=== PATIENT | male | born 1945 | race Caucasian/White ===

== ENCOUNTER 2024-03-05 20:40 | Emergency (ER) | payer MEDICARE, SELFPAY ==
[2024-03-05 20:45] VITALS: BP 104/81
[2024-03-05] MEDS: ADENOCARD 6 MG IV (20:51)
[2024-03-05 20:54] VITALS: BP 137/83
[2024-03-05] MEDS: ADENOCARD 12 MG IV (20:55)
[2024-03-05] MEDS: NSS 1000 IV (20:57)
[2024-03-05 21:00] VITALS: BP 99/69
[2024-03-05] MEDS: LOPRESSOR 5 MG IV (21:00)
[2024-03-05 21:01] LABS: % Basophils 0.5 % (0-2); % Eosinophils 2.4 % (0-6); % Immature Granulocytes 0.3 % (0-0.5); % Lymphocytes 24.2 % (20.5-51.1); % Monocytes 9.9 % (1.7-9.3); % Neutrophils 62.7 % (42.2-75.2); Absolute Basophils 0.1 10^3/uL (0-0.2); Absolute Eosinophils 0.2 10^3/uL (0-0.7); Absolute Lymphocytes 2.3 10^3/uL (1.2-3.4); Absolute Monocytes 0.9 10^3/uL (0.1-0.6); Absolute Neutrophils 5.8 10^3/uL (1.4-6.5); Hematocrit 43.3 % (39.0-52.0); Hemoglobin 15.7 g/dL (13.0-18.0); Mean Corp Hgb Conc. 36.3 g/dL (33.0-37.0); Mean Corpuscular Hgb 32.6 pg (27.0-31.0); Mean Corpuscular Volume 89.8 fL (80.0-94.0); Mean Platelet Volume 9.5 fL (7.4-10.4); Nucleated Red Blood Cells % 0 % (-); Platelet Count 260 10^3/uL (130-400); Red Blood Cell Count 4.82 10^6/uL (4.70-6.10); Red Cell Dist. Width 12.6 % (11.5-14.5); White Blood Cell Count 9.3 10^3/uL (4.8-10.8)
--- NOTE | 2024-03-05 21:02 | ED.GENMED ---
History of Present Illness
General
Chief Complaint: Dizziness
Time Seen by Provider: 03/05/24 20:42
Travel History
Have you had any contact with someone who has COVID-19?: No
Do you have any symptoms of coronavirus? Fever > 100 degrees, chills, cough, shortness of breath, sore throat, loss of taste or smell, muscle aches, or headache?: No
History of Present Illness
History of Present Illness:
Patient presents the emergency department with acute onset lightheadedness that started tonight. States he has a history of tachycardia and is supposed to get ablation but he is unsure of the exact history. Notes that this started tonight where he
began feeling very lightheaded with mild palpitations. Denies chest pain or shortness of breath.
Phy Exam
Physical Exam
Physical Exam:
GENERAL APPEARANCE: pale, uncomfortable appearing
EYES lids/conjunctiva normal
EARS/NOSE/THROAT Mucous membranes moist, uvula midline without oral pharyngeal erythema, exudate or swelling
HEAD/NECK normocephalic atraumatic, neck is supple.
RESPIRATORY respiratory effort normal, speaks in full sentences, no accessory muscle use. Lungs clear to auscultation without rhonchi, wheezes, rales
CARDIAC Regular tachycardia to 180
ABDOMINAL Soft, ND/NT. No pulsatile masses on exam, rebound tenderness, Feliz sign or pain over Mcburney's point.
MUSCLES/EXTREMITIES No abnormal range of motion, no swelling.
SKIN Warm, pink and dry. No rashes
NEUROLOGICAL Speech is clear and appropriate. Normal level of consciousness. 5/5 strength in all extremities.
PSYCH Normal mood and affect. Judgement/competence is appropriate
Course
Orders/Labs/Results
Orders:
Orders
03/05/24 20:43
ECG [Electrocardiogram (*1)] Urgent
Reason for Study: Shortness of Breath
EKG- Treatment ONCE
03/05/24 20:48
Complete Blood Count/With Diff Urgent
PTT Urgent
TSH Urgent
Comment: ADD ON
03/05/24 20:51
Adenosine [Adenocard] 6 mg IV NOW STA
03/05/24 20:52
Add On- LAB Urgent
Tests Added?: mag./tsh
03/05/24 20:55
Adenosine [Adenocard] 12 mg IV NOW STA
03/05/24 20:57
0.9% Sodium Chloride 1000 ml [Nss] 1,000 ml IV BOLUS
03/05/24 21:00
Metoprolol [Lopressor] 5 mg IV NOW STA
03/05/24 21:23
Comprehensive Metabolic Panel Urgent
Magnesium Urgent
Comment: ADD ON
03/05/24 21:29
Add On- LAB Urgent
Tests Added?: magnesium
Abnormal Lab Results
03/05/24 03/05/24
20:48 21:23
MCH 32.6 H pg
(27.0-31.0)
Absolute Monos (auto) 0.9 H 10^3/uL
(0.1-0.6)
Monocytes % 9.9 H %
(1.7-9.3)
APTT 37.2 H Sec
(23.4-35.0)
Glucose 107 H mg/dl
(70-99)
03/05/24 20:48
03/05/24 21:23
Vital Signs
Initial and Last Documented VS:
Initial Vital Signs
Temp Pulse Resp
98.3 F 178 20
03/05/24 20:43 03/05/24 20:43 03/05/24 20:43
Last Documented Vital Signs
Temp Pulse Resp BP Pulse Ox
98.3 F 82 13 96/76 92
03/05/24 20:43 03/05/24 22:15 03/05/24 22:15 03/05/24 22:00 03/05/24 22:15
*Critical Care Note
Total Time (30-74mins, 75-104mins- exclusive of procedures): 35 minutes
ED Attending Note
ED Attending Note
ED Attending Note:
On arrival, patient found to be in SVT with a chronic right bundle branch block. Patient would convert to sinus rhythm with a right bundle branch block with first-degree AV block after 6 mg of adenosine. He shortly converted back into SVT and he
was redosed with 12 mg of adenosine which was successful. After that, he converted back into SVT. At this point patient was given 5 mg of IV metoprolol. He then converted to sinus rhythm once again.
patient remains in sinus rhythm. he is asymptomatic. labs reassuring. Has follow up with EP physician on Thursday.
-
Portions of this chart may have been created with voice recognition software.� Occasional wrong word or��sound alike� substitutions may have occurred due to the inherent limitations of voice recognition software.
Discharge Plan
Departure
Patient Disposition: Home (Routine Discharge)
Date of Disposition: 03/05/24
Time of Disposition: 22:22
Patient with high blood pressure during this ER visit?: No
Discharge Problem:
Paroxysmal SVT (supraventricular tachycardia)
Instructions: Supraventricular tachycardia (SVT)
Activity Restrictions/Additional Instructions:
follow up with your game operator as scheduled. Return to ER with recurrent symptoms.
Interventions
Interventions:
*Risk Screen - Suicide Last Done: 03/05/24 20:43
*General Assessment Last Done: 03/05/24 20:43
*Neglect/Abuse Screening Last Done: 03/05/24 20:43
ED- Fall Risk Assessment Last Done: 03/05/24 21:02
*Nursing Disposition Last Done: 03/05/24 22:35
ED- Neurological Assessment Last Done: 03/05/24 21:02
ED- Cardiac Assessment Last Done: 03/05/24 21:02
ED Swallowing Screen Last Done: 03/05/24 21:02
Discharge Date and Time
Print Language: EMIRATI
[2024-03-05 21:10] LABS: APTT 37.2 Sec (23.4-35.0)
[2024-03-05 21:45] LABS: ALT (SGPT) 27 U/L (0-50); AST (SGOT) 27 U/L (17-59); Albumin 4.2 g/dl (3.5-5.0); Alkaline Phosphatase 47 U/L (38-126); Blood Urea Nitrogen 18 mg/dl (9-20); Calcium 9.5 mg/dl (8.4-10.2); Carbon Dioxide 23 mmol/L (22-30); Chloride 107 mmol/L (98-107); Glucose 107 mg/dl (70-99); Magnesium 2.1 mg/dl (1.6-2.3); Sodium 135 mmol/L (135-145); Total Bilirubin 1.2 mg/dl (0.2-1.3); Total Protein 6.8 g/dl (6.3-8.2); eGFR > 60.00
[2024-03-05 22:00] VITALS: BP 96/76
[2024-03-05 22:00] LABS: TSH 1.13 uIU/ml (0.47-4.68)
== END 2024-03-05 22:41 | disposition home or self-care (01) ==
LOC: EMR 20:40
PROVIDERS: EMERGENCY PHYSICIAN Emergency Medicine; FAMILY PHYSICIAN Internal Medicine
DX: I47.19 Other supraventricular tachycardia (principal)
CPT/HCPCS: 99291; 96374; 96375 ×2; 96361; 80053; 83735; 84443; 85025; 85730; 93005

== ENCOUNTER → 2024-03-14 15:44 | Outpatient (REF) | payer MEDICARE, SELFPAY | LOC: RCS 15:44 | PROVIDERS: ATTENDING PHYSICIAN Internal Medicine Cardiovascular Disease; FAMILY PHYSICIAN Internal Medicine | DX: R00.2 Palpitations (principal) | CPT/HCPCS: 93306 ==

== ENCOUNTER → 2024-04-04 19:03 | Outpatient (REF) | payer MEDICARE, SELFPAY | LOC: CLAB 19:03 | PROVIDERS: ATTENDING PHYSICIAN Surgery | DX: N39.0 Urinary tract infection, site not specified (principal) | CPT/HCPCS: 87086 ==

== ENCOUNTER 2024-04-11 17:21 | Emergency (ER) | payer MEDICARE, SELFPAY ==
[2024-04-11 17:36] VITALS: BP 145/98
[2024-04-11 18:02] LABS: % Basophils 0.4 % (0-2); % Immature Granulocytes 0.2 % (0-0.5); % Lymphocytes 16.2 % (20.5-51.1); % Monocytes 7.4 % (1.7-9.3); % Neutrophils 74.8 % (42.2-75.2); Absolute Eosinophils 0.1 10^3/uL (0-0.7); Absolute Lymphocytes 1.5 10^3/uL (1.2-3.4); Absolute Monocytes 0.7 10^3/uL (0.1-0.6); Absolute Neutrophils 6.9 10^3/uL (1.4-6.5); Hematocrit 45.3 % (39.0-52.0); Hemoglobin 16.7 g/dL (13.0-18.0); Mean Corp Hgb Conc. 36.9 g/dL (33.0-37.0); Mean Corpuscular Hgb 32.7 pg (27.0-31.0); Mean Corpuscular Volume 88.8 fL (80.0-94.0); Mean Platelet Volume 9.7 fL (7.4-10.4); Nucleated Red Blood Cells % 0 % (-); Platelet Count 274 10^3/uL (130-400); Red Cell Dist. Width 12.4 % (11.5-14.5); White Blood Cell Count 9.2 10^3/uL (4.8-10.8)
[2024-04-11 18:12] VITALS: BP 147/86
[2024-04-11 18:17] LABS: ALT (SGPT) 30 U/L (0-50); AST (SGOT) 25 U/L (17-59); Alkaline Phosphatase 72 U/L (38-126); Blood Urea Nitrogen 19 mg/dl (9-20); Calcium 10.4 mg/dl (8.4-10.2); Carbon Dioxide 20 mmol/L (22-30); Chloride 104 mmol/L (98-107); Glucose 123 mg/dl (70-99); Sodium 138 mmol/L (135-145); Total Bilirubin 1.1 mg/dl (0.2-1.3); Total Protein 7.7 g/dl (6.3-8.2); eGFR > 60.00
[2024-04-11 18:27] LABS: Troponin I 0.015 ng/ml
[2024-04-11 19:19] VITALS: BP 132/63
--- NOTE | 2024-04-11 19:38 | ED.GENMED ---
History of Present Illness
General
Chief Complaint: Heart Rate Problem
Time Seen by Provider: 04/11/24 18:30
Travel History
Have you had any contact with someone who has COVID-19?: No
Do you have any symptoms of coronavirus? Fever > 100 degrees, chills, cough, shortness of breath, sore throat, loss of taste or smell, muscle aches, or headache?: No
History of Present Illness
History of Present Illness:
79-year-old male presents the emergency department for evaluation of rapid heart rate. He has a known history of paroxysmal SVT and is scheduled for an ablation at the end of this month. On arrival to the ER the patient's symptoms resolved. He
does take low-dose metoprolol for control of this however feels as though his heart rate varies excessively throughout the day. Currently denies any chest pain or shortness of breath simply feels tired
Review of Systems
Review of Systems
Allergies reviewed?: Yes
All Other Systems: ROS reviewed and negative except as documented in HPI and ROS
Phy Exam
Physical Exam
Physical Exam:
GEN: Well appearing, NAD, WDWN
HEENT: Oral mucosa moist, no scleral icterus
Cardiac: Regular rate and rhythm, no murmurs
Lung: No respiratory distress, no tachypnea lungs clear to auscultation bilaterally
MSK: No gross deformity or injuries
Skin: Good color, no pallor or jaundice, no rashes
Neuro: AO x3, moves all extremities freely
Psych: Calm, cooperative
Course
Orders/Labs/Results
Orders:
Orders
04/11/24 17:29
EKG [Electrocardiogram (*1)] Urgent
Reason for Study: Tachycardia
04/11/24 17:30
EKG- Treatment ONCE
04/11/24 17:54
Complete Blood Count/With Diff Urgent
Comprehensive Metabolic Panel Urgent
Troponin I Urgent
04/11/24 18:40
Electrocardiogram (*1) Urgent
Reason for Study: Palpitations
EKG- Treatment ONCE
Abnormal Lab Results
04/11/24
17:54
MCH 32.7 H pg
(27.0-31.0)
Absolute Neuts (auto) 6.9 H 10^3/uL
(1.4-6.5)
Absolute Monos (auto) 0.7 H 10^3/uL
(0.1-0.6)
Lymphocytes % 16.2 L %
(20.5-51.1)
Carbon Dioxide 20 L mmol/L
(22-30)
Glucose 123 H mg/dl
(70-99)
Calcium 10.4 H mg/dl
(8.4-10.2)
04/11/24 17:54
04/11/24 17:54
Vital Signs
Initial and Last Documented VS:
Initial Vital Signs
Temp Pulse Resp BP Pulse Ox
98.2 F 80 18 145/98 98
04/11/24 17:36 04/11/24 17:36 04/11/24 17:36 04/11/24 17:36 04/11/24 17:36
Last Documented Vital Signs
Temp Pulse Resp BP Pulse Ox
98.6 F 66 17 132/63 98
04/11/24 19:19 04/11/24 19:19 04/11/24 18:15 04/11/24 19:19 04/11/24 20:22
MDM/Problems Addressed
MDM/Problems Addressed:
Patient's SVT terminated upon arrival to the ER and he remained asymptomatic in the emergency department. No changes to therapy, outpatient cardiac ablation already scheduled
Comment
Comment:
EKG independently interpreted by me shows normal sinus rhythm with no ST changes concerning for ischemia
*Critical Care Note
Total Time (30-74mins, 75-104mins- exclusive of procedures): Not Applicable
ED Attending Note
-
Portions of this chart may have been created with voice recognition software.� Occasional wrong word or��sound alike� substitutions may have occurred due to the inherent limitations of voice recognition software.
Discharge Plan
Departure
Patient Disposition: Home (Routine Discharge)
Date of Disposition: 04/11/24
Time of Disposition: 19:39
Patient with high blood pressure during this ER visit?: No
Discharge Problem:
Paroxysmal supraventricular tachycardia
Instructions: Supraventricular tachycardia (SVT)
Referrals:
Jose Rafael Mohan I., DO [Family Provider] -
Interventions
Interventions:
*Risk Screen - Suicide Last Done: 04/11/24 17:38
*General Assessment Last Done: 04/11/24 17:38
*Neglect/Abuse Screening Last Done: 04/11/24 17:38
ED- Fall Risk Assessment Last Done: 04/11/24 20:00
*ED COVID-19 Vaccine History Last Done: 04/11/24 20:00
*Nursing Disposition Last Done: 04/11/24 20:22
ED- Cardiac Assessment Last Done: 04/11/24 19:30
ED- Pulmonary Assessment Last Done: 04/11/24 20:00
Discharge Date and Time
Discharge Date/Time: 04/11/24 20:23
Print Language: CONGOLESE
== END 2024-04-11 20:23 | disposition home or self-care (01) ==
LOC: EMR 17:21
PROVIDERS: EMERGENCY PHYSICIAN Emergency Medicine; FAMILY PHYSICIAN Internal Medicine
DX: I47.19 Other supraventricular tachycardia (principal)
CPT/HCPCS: 99283; 80053; 84484; 85025; 93005

== ENCOUNTER → 2024-04-20 09:34 | Outpatient (REF) | payer MEDICARE, SELFPAY ==
[2024-04-20 10:10] LABS: % Basophils 0.9 % (0-2); % Eosinophils 3.4 % (0-6); % Immature Granulocytes 0.2 % (0-0.5); % Monocytes 11.2 % (1.7-9.3); % Neutrophils 60.3 % (42.2-75.2); Absolute Basophils 0.1 10^3/uL (0-0.2); Absolute Eosinophils 0.2 10^3/uL (0-0.7); Absolute Lymphocytes 1.6 10^3/uL (1.2-3.4); Absolute Monocytes 0.7 10^3/uL (0.1-0.6); Absolute Neutrophils 3.9 10^3/uL (1.4-6.5); Hematocrit 45.5 % (39.0-52.0); Hemoglobin 15.4 g/dL (13.0-18.0); Mean Corp Hgb Conc. 33.8 g/dL (33.0-37.0); Mean Corpuscular Hgb 32.2 pg (27.0-31.0); Mean Corpuscular Volume 95.2 fL (80.0-94.0); Mean Platelet Volume 11.3 fL (7.4-10.4); Nucleated Red Blood Cells % 0 % (-); Platelet Count 152 10^3/uL (130-400); Red Blood Cell Count 4.78 10^6/uL (4.70-6.10); Red Cell Dist. Width 12.6 % (11.5-14.5); White Blood Cell Count 6.5 10^3/uL (4.8-10.8)
[2024-04-20 10:47] LABS: ALT (SGPT) 27 U/L (0-50); AST (SGOT) 23 U/L (17-59); Albumin 4.8 g/dl (3.5-5.0); Alkaline Phosphatase 55 U/L (38-126); Blood Urea Nitrogen 20 mg/dl (9-20); Calcium 9.9 mg/dl (8.4-10.2); Carbon Dioxide 23 mmol/L (22-30); Chloride 104 mmol/L (98-107); Glucose 102 mg/dl (70-99); Magnesium 2.4 mg/dl (1.6-2.3); Potassium 4.3 mmol/L (3.5-5.1); Sodium 139 mmol/L (135-145); Total Protein 7.3 g/dl (6.3-8.2); eGFR > 60.00
== END ==
LOC: SDSPAT 09:34
PROVIDERS: ATTENDING PHYSICIAN Internal Medicine Cardiovascular Disease; FAMILY PHYSICIAN Internal Medicine; OTHER PHYSICIAN Internal Medicine Cardiovascular Disease
DX: Z01.818 Encounter for other preprocedural examination (principal); I47.10 Supraventricular tachycardia, unspecified
CPT/HCPCS: 36415; 80053; 83735; 85025

== ENCOUNTER 2024-04-27 05:55 | Day surgery (SDC) | payer MEDICARE, SELFPAY ==
[2024-04-20 09:50] VITALS: BMI 31.8
[2024-04-27] VITALS (17 sets, daily range): BP systolic 117–167; BP diastolic 61–106; BMI 30.5
[2024-04-27] MEDS: NSS 500 IV (06:50)
--- NOTE | 2024-04-27 07:32 | ITS.CL.ABL ---
Swing Type Lathe Operator - Ablation
Ablation
Procedure Report:
Primary Physician: Jose Rafael Mohan DO
Primary Tablet Tester: Willian Caruso MD
Procedure Date: 04/27/2024
Procedure
Electrophysiology Study with SVT ablation
Left atrial recording / pacing
IV drug for arrhythmia induction
Patient History
Patient is a pleasant 79 year old male with a history of palpitations, near syncope, HTN, RBBB, GERD, and paroxysmal SVT (clinical 170 bpm with RBBB appears short RP tachycardia on surface ECG).
Method
After informed consent was obtained, the patient was brought to the EP lab in a post-absorptive, non-sedated state. A peripheral IV was in place. Continuous electrocardiography, blood pressure and pulse oximetry monitoring was initiated and
cardioversion / defibrillator electrodes were positioned on the chest in an AP orientation. A 'time-out' was called. Conscious sedation was administered with the assistance of the anesthesia services, and local anesthesia was given at the femoral
vein access sites.
Using modified Seldinger technique, vascular access was achieved and sheaths were placed. Multipolar catheters were advanced to the coronary sinus, His bundle recording position, right ventricle, and high right atrium. Following the determination
of baseline conduction intervals, comprehensive EP study was performed. Pacing and recording from the RA, RV, HBE, and CS / LA was performed.
For arrhythmia details, see below.
Fluoroscopy time:
7.2 min; 25.75 mGy; DAP 4.03
Total RF time:
8 min 47s
Estimated Blood Loss
5-10 mL
Complications
None
At the end of the procedure, all catheters and sheaths were removed and hemostasis was assured with figure of 8 suture for both groin sites and manual pressure. The patient was returned to the recovery area in stable condition.
Access Sites:
Left Femoral Vein: 2 sheaths (7 Fr, 6 Fr)
Right Femoral Vein: 2 sheaths (8 Fr upsized to 11.5 Fr, 9 Fr)
Baseline Intervals:
Rhythm: SR
IN: 227 ms
AH: 141 ms
HV: 56 ms
QRS: 134 ms
QT: 453 ms
QTc: 407 ms
A-A: 1241 ms
R-R: 1241 ms
Post-Procedure Intervals:
IN: 230 ms
AH: 140 ms
HV: 60 ms
QRS: 133 ms
QT: 432 ms
QTc: 505 ms
AV Conduction:
- AVWB at 420 msec
- VAWB at 410 msec
Refractory Periods
- AVNERP at 600/310 ms
Procedure Synopsis:
The patient entered the room in sinus rhythm. Following access and catheter placement, baseline measurements were obtained. Parahisian pacing demonstrated a ailyn response. Arrhythmia induction was attempted. No evidence of AH jump or sustained
arrhythmia however patient demonstrated single echo beats. Isoproterenol was used and again, no arrhythmia was induced but 2 echo beats noted with burst pacing with similar timing and morphology to clinical SVT. With drive train and single
extrastimulus, there was an AH jump followed by AVNERP. Adenosine was given demonstrated no retrograde conducting accessory pathway. Heparin was given for ACT 300-400 and HD grid catheter was used to map RA including HIS area and slow pathway area.
Due to patient's clinical short RP tachycardia, evidence of dual ailyn physiology, dual echoes, RFA (20W) proceeded with slow pathway modification at areas showing no HIS signal on ablation distal along with EGM showing 1:3-1:5 A:V ratios. During
ablation power, temperature, impedance were closely monitored. Additionally, AV conduction was closely monitored. During ablation, stable slow junctional beats were noted indicated slow pathway modification. AV conduction remained intact throughout
the entirety of the case. During ablation, a slower clinical A-on-V tachycardia was noted at TCL 530-550 occurring with catheter pressure in slow pathway region and terminated with catheter movement away from the area. Following ablation, arrhythmia
induction was once more attempted with and without isoproterenol. No sustained arrhythmias were induced. Additionally, no double echoes were noted following completion of case. Protamine was given. Measurements once more obtained. Catheters were
removed and hemostasis achieved as noted above.
Recommendations
- Admit to telemetry
- Bedrest with straight-leg precautions 4 hours
- Continue home medications as indicated
- Follow-up in office in 4-6 weeks
Ti Genao DO
Clinical Cardiac Electrophysiology
cc: Jose Rafael Mohan DO; Willian Caruso MD
[2024-04-27 09:58] LABS: ACT-LR - POC 284 Seconds (116-155)
[2024-04-27 10:12] LABS: ACT-LR - POC 289 Seconds (116-155)
[2024-04-27 10:39] LABS: ACT-LR - POC 298 Seconds (116-155)
[2024-04-27 11:18] LABS: ACT-LR - POC 147 Seconds (116-155)
--- NOTE | 2024-04-27 12:14 | PTCARENOTE ---
Attempting to void and is unable. Bladder scan is greath than 510. Penny HEAD GOLF COACH aware.Flomax ordered.
[2024-04-27] MEDS: TYLENOL 650 MG PO ×2 (13:11→19:28)
[2024-04-27] MEDS: FLOMAX 0.800000000000000044 MG PO (13:34)
--- NOTE | 2024-04-27 16:51 | CM ---
Reviewed chart. Met with Mr. Marin to review discharge plans. He states prior to admission he resides with his spouse in a three story home with a full flight of steps to get to the first floor. He states he has to go up a full flight of steps
to get to bedroom/full bathroom. He states he is planning on staying on the first floor when he goes home. He states prior to admission he was independent with ambulation and adls. He states he does not have any DME in the home. He states he has
a prescription plan and uses [facility]. The discharge plan is to return home with his spouse when medically stable.
[2024-04-27] MEDS: NSS IV (17:05)
--- NOTE | 2024-04-27 19:06 | PTCARENOTE ---
Pt received post ablation at 1630. Pt oob to the chair on arrival. Bilateral groin site dressing dry with no hematoma. Pt denies any pain or discomfort. SR with freq pvc's, pac's and rare bigem.
[2024-04-27] MEDS: LOPRESSOR 12.5 MG PO (19:28)
--- NOTE | 2024-04-27 20:55 | PTCARENOTE ---
pt ambulating in the room as a self. POC discussed- pt verbalized understanding. B/L groins CDI. palpable pedal pulses. SR with a 1st degree and bigeminy on the monitor.
[2024-04-27] MEDS: XANAX 0.5 MG PO (22:37)
[2024-04-28 03:58] VITALS: BP 129/66
[2024-04-28 05:18] LABS: Hemoglobin 14.2 g/dL (13.0-18.0); Mean Corp Hgb Conc. 34.6 g/dL (33.0-37.0); Mean Corpuscular Hgb 32.5 pg (27.0-31.0); Mean Corpuscular Volume 93.8 fL (80.0-94.0); Mean Platelet Volume 10.6 fL (7.4-10.4); Platelet Count 210 10^3/uL (130-400); Red Blood Cell Count 4.37 10^6/uL (4.70-6.10); Red Cell Dist. Width 12.7 % (11.5-14.5); White Blood Cell Count 7.3 10^3/uL (4.8-10.8)
[2024-04-28 05:49] LABS: Blood Urea Nitrogen 18 mg/dl (9-20); Calcium 9.2 mg/dl (8.4-10.2); Carbon Dioxide 27 mmol/L (22-30); Chloride 101 mmol/L (98-107); Estimated Creatinine Clearance 82 ml/min; Glucose 91 mg/dl (70-99); Potassium 4.2 mmol/L (3.5-5.1); Sodium 137 mmol/L (135-145); eGFR > 60.00
[2024-04-28 06:53] VITALS: BP 137/56
[2024-04-28] MEDS: LOPRESSOR 12.5 MG PO (08:15)
[2024-04-28] MEDS: PROTONIX 40 MG PO (08:15)
[2024-04-28] MEDS: FLOMAX 0.800000000000000044 MG PO (08:15)
[2024-04-28] MEDS: PROSCAR 5 MG PO (08:15)
[2024-04-28] MEDS: TYLENOL 650 MG PO (08:20)
[2024-04-28] MEDS: MILK OF MAGNESIA 30 ML PO (09:32)
--- NOTE | 2024-04-28 09:36 | PTCARENOTE ---
Rec'd pt this shift awake and alert. AM meds given. Pt with rt and left groin dsgs intact, no bleeding noted. Tylenol given this am for Rt groin pain. See worklist for VS/I and O and assessments.
[2024-04-28] MEDS: NSS IV (09:39)
--- NOTE | 2024-04-28 09:55 | W.PN.CARDCBS ---
Today's Communication / Plan
-
stable for d/c home
Impression / Plan
-
Primary Physician: Jose Rafael Mohan DO
Primary Information Consultant: Willian Caruso MD
Impression:
Symptomatic paroxysmal SVT
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
HTN
RBBB
GERD
BPH
Plan:
post ablation feels good
groins stable with small ecchymosis
tele SB 1deg AVB, RBBB, PVC's and PAC's
continue metoprolol 12.5mg bid
Activity restrictions reviewed
f/u DCA 1 mo
home today
Progress Note - Information Consultant
Subjective
Date of Service: April 28, 2024
no cp, sob
Objective
Labs:
04/28/24 04:07
04/28/24 04:07
Labs
Hgb 14.2 g/dL (13.0-18.0) 04/28/24 04:07
Hct 41.0 % (39.0-52.0) 04/28/24 04:07
Plt Count 210 10^3/uL (130-400) 04/28/24 04:07
Sodium 137 mmol/L (135-145) 04/28/24 04:07
Potassium 4.2 mmol/L (3.5-5.1) 04/28/24 04:07
BUN 18 mg/dl (9-20) 04/28/24 04:07
Creatinine 0.7 mg/dL (0.7-1.3) 04/28/24 04:07
Glucose 91 mg/dl (70-99) 04/28/24 04:07
Vital Signs and I&O:
Vital Signs
Temp Pulse Resp BP Pulse Ox
97.7 F 75 18 137/56 97
04/28/24 06:50 04/28/24 08:15 04/28/24 06:50 04/28/24 08:15 04/28/24 08:50
Vital Signs
Temp Pulse Resp BP Pulse Ox
97.7 F 75 18 137/56 97
04/28/24 06:50 04/28/24 08:15 04/28/24 06:50 04/28/24 08:15 04/28/24 08:50
Intake & Output
04/26/24 04/27/24 04/28/24 04/29/24
06:59 06:59 06:59 06:59
Intake Total 430 / 430 500 / 500
Output Total 1900 / 1900
Balance -1470 / -1470 500 / 500
Physical Exam
Physical Exam
NAD< AOX3
S1, s2, RRR
CTAB< non labored
SNTND bsx4
b/l groins c/d/i, soft, small area of ecchymosis b/l groins
[2024-04-28 11:34] VITALS: BP 135/74
--- NOTE | 2024-04-28 11:42 | PTCARENOTE ---
discharge instructions given to patient. Encouraged questions.
--- NOTE | 2024-04-28 12:10 | W.DS.TRANS ---
DC Summary - Planting Supervisor
-
Discharge Instructions:
Discharge Diagnosis/Procedures SVT/AVNRT, s/p ablation
Diet Low Cholesterol
Driving Restrictions No driving for 24 hours
Instructions:
Stand-Alone Forms: DC Instructions- Cath/EP Lab
Changes to Home Medications: No
Discharge Medications:
DC Medications w/original date entered in [employer]
alprazolam 0.5 mg tablet (Xanax) 0.5 mg PO HS PRN insomnia/anxiety 04/27/24
finasteride 5 mg tablet 5 mg PO DAILY 04/27/24
ivermectin 3 mg tablet 20 mg PO .TWICE A WEEK 04/27/24
metoprolol tartrate 25 mg tablet 12.5 mg PO BID 04/27/24
omeprazole 20 mg capsule,delayed release 20 mg PO DAILY 04/27/24
tamsulosin 0.4 mg capsule 0.8 mg PO DAILY 04/27/24
Home Medication Changes
Pending Results: No
== END 2024-04-28 12:19 | disposition home or self-care (01) ==
LOC: CATH 05:55
PROVIDERS: Nurse Practitioner; ATTENDING PHYSICIAN Internal Medicine Cardiovascular Disease; FAMILY PHYSICIAN Internal Medicine; OTHER PHYSICIAN Internal Medicine Cardiovascular Disease
DX: I47.10 Supraventricular tachycardia, unspecified (principal); R00.2 Palpitations; I45.10 Unspecified right bundle-branch block; I48.0 Paroxysmal atrial fibrillation; I10 Essential (primary) hypertension; K21.9 Gastro-esophageal reflux disease without esophagitis; Z87.891 Personal history of nicotine dependence
CPT/HCPCS: C1732; C1730; C1766; C2630; C1892; C1894; 76937; 80048; 85027; 85347; 86850; 86900; 86901; 93005; 93623; 93653; J0153

== ENCOUNTER → 2024-04-30 11:37 | Outpatient (REF) | payer MEDICARE, SELFPAY ==
[2024-04-30 12:38] LABS: Urine Albumin Negative (Neg - Trace); Urine Bilirubin Negative (Negative); Urine Character Clear (Clear); Urine Color Yellow; Urine Glucose Negative (Negative); Urine Ketone Negative (Negative); Urine Leukocyte Negative (Negative); Urine Nitrite Negative (Negative); Urine Occult Blood Negative (Negative); Urine Urobilinogen Negative (Neg - 1+)
== END ==
LOC: REG 11:37
PROVIDERS: ATTENDING PHYSICIAN Surgery; FAMILY PHYSICIAN Internal Medicine
DX: N39.0 Urinary tract infection, site not specified (principal)
CPT/HCPCS: 36415; 81003; 87086; 87147

== ENCOUNTER → 2024-05-23 09:57 | Outpatient (REF) | payer MEDICARE, SELFPAY ==
[2024-05-24 20:10] LABS: PSA Total 2.8 ng/mL (0.0-4.0)
== END ==
LOC: REG 09:57
PROVIDERS: ATTENDING PHYSICIAN Surgery; FAMILY PHYSICIAN Internal Medicine
DX: Z12.5 Encounter for screening for malignant neoplasm of prostate (principal); R97.20 Elevated prostate specific antigen [PSA]
CPT/HCPCS: 36415; 84153; 84154

== ENCOUNTER → 2024-10-12 11:48 | Day surgery (SDC) | payer MEDICARE, SELFPAY ==
[2024-10-12 13:48] LABS: Hematocrit 46.8 % (39.0-52.0); Hemoglobin 15.9 g/dL (13.0-18.0); Mean Corpuscular Hgb 31.5 pg (27.0-31.0); Mean Corpuscular Volume 92.7 fL (80.0-94.0); Mean Platelet Volume 10.6 fL (7.4-10.4); Platelet Count 272 10^3/uL (130-400); Red Blood Cell Count 5.05 10^6/uL (4.70-6.10); Red Cell Dist. Width 12.7 % (11.5-14.5); White Blood Cell Count 7.9 10^3/uL (4.8-10.8)
[2024-10-12 14:46] LABS: Blood Urea Nitrogen 26 mg/dl (9-20); Calcium 9.5 mg/dl (8.4-10.2); Carbon Dioxide 27 mmol/L (22-30); Chloride 102 mmol/L (98-107); Glucose 90 mg/dl (70-99); Potassium 4.5 mmol/L (3.5-5.1); Sodium 139 mmol/L (135-145); eGFR > 60.00
== END ==
LOC: SDSPAT 11:48
PROVIDERS: ATTENDING PHYSICIAN Surgery; FAMILY PHYSICIAN Internal Medicine
DX: Z01.812 Encounter for preprocedural laboratory examination (principal)
CPT/HCPCS: 80048; 36415; 85027

== ENCOUNTER 2024-10-14 07:23 | Day surgery (SDC) | payer MEDICARE, SELFPAY ==
[2024-10-12 12:52] VITALS: BMI 31.6
[2024-10-14] VITALS (11 sets, daily range): BP systolic 110–148; BP diastolic 53–85; BMI 31.6
[2024-10-14] MEDS: NORMOSOL-R/PLASMALYTE-A 1000 IV (11:38)
--- NOTE | 2024-10-14 13:37 | W.IMMPOSTOP ---
Surgical Immed Post Op Note
-
Primary Surgeon: Davon
Pre-op Diagnosis: BPH with PHILLIPS
Post-op Diagnosis: Same
Procedure Performed: urethral dilation (Stacey sounds), TURP
Anesthesia Type: LMA
Specimen / Cultures: prostate chips/None
Estimated Blood Loss: 2 cc
Drains: 24Fr 3-way catheter (25 cc in balloon)
Complications: None
Operative Findings:
1. Thorough resection of prostatic adenoma (trilobar BPH) to capsule laterally, large intravesical obstructing median lobe resected.
2. Satisfactory hemostasis in no flow, low pressure state on final cystoscopy.
3. Widely patent and resected prostatic urethral channel w/o outflow obstruction on final cystoscopy.
Spouse (Natali) updated post-op.
[2024-10-14] MEDS: Pyridium 200 MG PO (13:42)
[2024-10-14] MEDS: DETROL LA 4 MG PO (13:42)
[2024-10-14] MEDS: DILAUDID 0.25 MG IV ×2 (13:49→14:06)
--- NOTE | 2024-10-14 14:51 | SUR.PHASEI ---
patient in pacu post op TURP - vss, monitor shows 1st degree block, as well as BBB, and PVC's, PAC's. asymptomatic, Medicated with pyridium and detrol as soon as awake and able to take PO. Medicated with Dilaudid 0.25mg IV for pain x2 with some
relief. TT Dr Mays with request for lidocaine gel to penis. CBI running briskly - outlfow is pink to light punch color - no clots. Discharge to [address] [place] [address] with hand- off at bedside and updated.
[2024-10-14] MEDS: LIDOCAINE URO-JET 2% 1 SYRINGE TOPICAL ×2 (15:02→17:38)
[2024-10-14] MEDS: VALIUM 2 MG PO (21:55)
[2024-10-14] MEDS: MELATONIN 5 MG PO (23:24)
[2024-10-15 03:25] VITALS: BP 124/72
[2024-10-15] MEDS: LIDOCAINE URO-JET 2% 1 SYRINGE TOPICAL (03:45)
[2024-10-15 06:22] LABS: Blood Urea Nitrogen 17 mg/dl (9-20); Calcium 9.1 mg/dl (8.4-10.2); Carbon Dioxide 27 mmol/L (22-30); Chloride 101 mmol/L (98-107); Estimated Creatinine Clearance 86 ml/min; Glucose 123 mg/dl (70-99); Potassium 4.3 mmol/L (3.5-5.1); Sodium 137 mmol/L (135-145); eGFR > 60.00
[2024-10-15 07:00] LABS: % Basophils 0.1 % (0-2); % Eosinophils 0.1 % (0-6); % Immature Granulocytes 0.6 % (0-0.5); % Lymphocytes 6.4 % (20.5-51.1); % Monocytes 8.1 % (1.7-9.3); % Neutrophils 84.7 % (42.2-75.2); Absolute Immature Granulocytes 0.1 10^3/uL (0-0.05); Absolute Lymphocytes 1.2 10^3/uL (1.2-3.4); Absolute Monocytes 1.6 10^3/uL (0.1-0.6); Absolute Neutrophils 16.5 10^3/uL (1.4-6.5); Hematocrit 41.4 % (39.0-52.0); Hemoglobin 14.3 g/dL (13.0-18.0); Mean Corp Hgb Conc. 34.5 g/dL (33.0-37.0); Mean Corpuscular Hgb 32.3 pg (27.0-31.0); Mean Corpuscular Volume 93.5 fL (80.0-94.0); Mean Platelet Volume 10.9 fL (7.4-10.4); Nucleated Red Blood Cells % 0 % (-); Platelet Count 260 10^3/uL (130-400); Red Blood Cell Count 4.43 10^6/uL (4.70-6.10); Red Cell Dist. Width 12.5 % (11.5-14.5); White Blood Cell Count 19.5 10^3/uL (4.8-10.8)
[2024-10-15 07:58] VITALS: BP 112/66
[2024-10-15] MEDS: VITAMIN D3 (cholecalciferol) 25 MCG PO (08:21)
[2024-10-15] MEDS: MAG-TAB SR 84 MG PO (08:21)
[2024-10-15] MEDS: FLOMAX 0.8 MG PO (08:21)
[2024-10-15] MEDS: VITAMIN E 400 UNITS PO (08:21)
[2024-10-15] MEDS: PROTONIX 40 MG PO (08:21)
[2024-10-15] MEDS: PROSCAR 5 MG PO (08:21)
[2024-10-15] MEDS: MOTRIN 600 MG PO (08:28)
--- NOTE | 2024-10-15 08:47 | W.PN.URO.CBU ---
Today's Communication / Plan
-
TOV
Discharge
Assessment / Plan
-
79M POD 1 s/p TURP
- Beauchamp out for trial of void
- Likely discharge today
Diagnosis
-
Date of Service: October 15, 2024
-
Patient Diagnosis:
BPH
Post Op Day: 1 s/p TURP
Subjective
-
no issues overnight
Objective
-
Vital Signs
Temp Pulse Resp BP Pulse Ox
97.8 F 68 16 112/66 97
10/15/24 07:58 10/15/24 07:58 10/15/24 07:58 10/15/24 07:58 10/15/24 07:58
Intake and Output
10/14/24 10/15/24 10/16/24
06:59 06:59 06:59
Intake Total 660 / 660
Output Total 2650 / 2650
Balance -1989 / -1989
Intake:
Oral fluids 460 / 460
IV fluids (Total) 200 / 200
normosol 200 / 200
Output:
True Urine Output from CBI 2650 / 2650
Laboratory Results
10/15/24 05:18
10/15/24 05:18
Physical Exam
-
General - well developed, well nourished, no acute distress
Chest - clear
Abdomen - soft, non-tender
Beauchamp in place clear yellow
[2024-10-15] MEDS: Pyridium 200 MG PO (10:21)
[2024-10-15 11:41] VITALS: BP 133/68
--- NOTE | 2024-10-15 13:00 | CM ---
CM met with pt bedside
Pt resides with spouse in a 2SH with 18 MYLES due to prox. to river
!2 steps to 2nd floor
Pt is indep with his ADLs, utilizes a SPC for longer distances in the community
Denies financial insecurities
PCP- Jose Rafael Mohan
Rx- [facility] [address]
Pt indep throughout room
Plan for dc home today with no needs pending void trial
Spouse will transport home
Discharge Disposition- home, no needs, spouse transport
[2024-10-15 16:15] VITALS: BP 152/80
== END 2024-10-15 16:23 | disposition home or self-care (01) ==
LOC: SDS 07:23
PROVIDERS: ATTENDING PHYSICIAN Surgery
DX: N40.1 Benign prostatic hyperplasia with lower urinary tract symptoms (principal); N32.0 Bladder-neck obstruction
CPT/HCPCS: 52601; 88305; 80048; 85025

== ENCOUNTER 2024-10-31 08:11 | Inpatient (IN) | payer MEDICARE, SELFPAY ==
[2024-10-28 15:42] VITALS: BP 188/69
[2024-10-28 16:19] LABS: % Basophils 0.4 % (0-2); % Eosinophils 0.1 % (0-6); % Immature Granulocytes 0.6 % (0-0.5); % Lymphocytes 8.5 % (20.5-51.1); % Monocytes 6.2 % (1.7-9.3); % Neutrophils 84.2 % (42.2-75.2); Absolute Immature Granulocytes 0.1 10^3/uL (0-0.05); Absolute Lymphocytes 0.7 10^3/uL (1.2-3.4); Absolute Monocytes 0.5 10^3/uL (0.1-0.6); Absolute Neutrophils 7.2 10^3/uL (1.4-6.5); Hematocrit 43.1 % (39.0-52.0); Hemoglobin 14.5 g/dL (13.0-18.0); Mean Corp Hgb Conc. 33.6 g/dL (33.0-37.0); Mean Corpuscular Hgb 31.6 pg (27.0-31.0); Mean Corpuscular Volume 93.9 fL (80.0-94.0); Mean Platelet Volume 9.6 fL (7.4-10.4); Nucleated Red Blood Cells % 0 % (-); Platelet Count 247 10^3/uL (130-400); Red Blood Cell Count 4.59 10^6/uL (4.70-6.10); Red Cell Dist. Width 12.8 % (11.5-14.5); White Blood Cell Count 8.5 10^3/uL (4.8-10.8)
[2024-10-28 16:43] LABS: ALT (SGPT) 37 U/L (0-50); AST (SGOT) 37 U/L (17-59); Albumin 4.2 g/dl (3.5-5.0); Alkaline Phosphatase 66 U/L (38-126); Blood Urea Nitrogen 21 mg/dl (9-20); Calcium 8.9 mg/dl (8.4-10.2); Carbon Dioxide 25 mmol/L (22-30); Chloride 100 mmol/L (98-107); Glucose 102 mg/dl (70-99); Potassium 3.9 mmol/L (3.5-5.1); Sodium 137 mmol/L (135-145); Total Bilirubin 0.5 mg/dl (0.2-1.3); Total Protein 6.9 g/dl (6.3-8.2); eGFR > 60.00
[2024-10-28 19:49] VITALS: BP 155/99
[2024-10-28 20:00] VITALS: BP 165/67
--- NOTE | 2024-10-28 20:17 | ED.GENMED ---
History of Present Illness
General
Chief Complaint: Breathing Problem
Source: patient and spouse
Exam Limitations: none
Time Seen by Provider: 10/28/24 19:58
Nursing documentation reviewed up to this point in time: agreed with
History of Present Illness
History of Present Illness:
79-year-old male presents emergency room complaining of shortness of breath and cough. Ongoing for 3 days. He has been feeling fatigue and with fever. He was seen in urgent care tested positive for the flu and sent to the emergency department.
Past History
Past History
ED Past Medical History: Arrthythmia, GERD and HTN
ED Past Surgical History: Appendectomy, Orthopedic (Right shoulder replacement, left wrist, left ankle tendon repair) and Other (Bilateral inguinal hernia)
Social History
Tobacco: Former smoker
Alcohol: None
Drug: None
Personal:
Living: with family
Employment: Employed
Review of Systems
Review of Systems
Allergies reviewed?: Yes
All Other Systems: Not applicable
Constitutional: Reports fever and fatigue
EENT: Reports runny nose
Respiratory: Reports cough and trouble breathing
Cardiac: Reports no symptoms
ABD/GI: Reports no symptoms
: Reports no symptoms
Musculoskeletal: Reports no symptoms
Skin: Reports no symptoms
Neurological: Reports no symptoms
Endocrine: Reports no symptoms
Hematologic/Lymphatic: Reports no symptoms
Psychiatric: Reports no symptoms
Phy Exam
Physical Exam
Physical Exam:
Physical Exam
General: Afebrile
Neck: supple. no meningeal signs. normal posterior pharynx
Heart: s1/s2 regular rate and rhythm, no murmur. equal radial
pulses.
HEENT: Pupils equal round reactive to light, EOMI
Lungs: Moderate respiratory distress. Wheezing and rhonchi. bilaterally
Abdomen: normal bowel sounds. not tender. no CVAT
Neuro: alert and oriented. no focal neurological deficits cranial nerves II through XII intact
Skin: no rash
Psychiatric: well kept. interactive and cooperative
Extremities: no edema. no calf tenderness. negative homans. good distal pulses
Scores
Heart Failure Risk
Heart Failure Risk Score: Not Applicable
Course
Orders/Labs/Results
Orders:
Orders
10/28/24 Breakfast
Regular
At Your Request: Full Participation
10/28/24 15:50
Electrocardiogram (*1) Urgent
Reason for Study: Bradycardia / Tachycardia
EKG- Treatment ONCE
CR Chest - 2 Views Urgent
Comment:
Reason For Exam: sob, flu +
10/28/24 16:05
Complete Blood Count/With Diff Urgent
Comprehensive Metabolic Panel Urgent
10/28/24 20:21
Ipratropium/Albuterol Sulfate [Duoneb] 3 ml INH R NOW STA
Oseltamivir Phosphate [Tamiflu] 75 mg PO NOW STA
10/28/24 20:29
COVID-19 Antigen Urgent
Source: Nasal Swab
Influenza A+B Rapid Molecular Urgent
[place] Source: Nasal Swab
Specimen Description:
10/28/24 22:04
Admit/Transfer Patient As Directed
Co-Sign Provider:
Level of Care: Observation services
Assign to:: Telemetry
Physician / Group: Junaid
Diagnosis: Influenza A
Reason for Telemetry: Arrhythmia
Date to Stop Telemetry: 10/31/24
Time to Stop Telemetry: 11:00
10/28/24 22:05
Code Status As Directed
Resuscitation Status: Full Code
PRN Pain Medication Management As Directed
May give lesser potent ordered pain med per pt: Yes
preference::
Protocol:: Medication orders for pain may be administered in a
manner that supports deferring to patient preference
when the pt is:
- Requesting an ordered lesser potent pain medication.
Least to most potent pain medications are defined
as: acetaminophen < NSAID < tramadol < opioids
(morphine, oxycodone, hydromorphone).
- Requesting a lesser dose of the same medication IF
ORDERED.
- Requesting a less intrusive route of administration
if both routes are prescribed by the provider (PO <
IV).
10/28/24 22:55
Acetaminophen [Tylenol] 1,000 mg PO Q6HPRN PRN
Albuterol [ProAIR HFA INHALER] 2 puff INH R Q4HPRN PRN
Alprazolam [Xanax] 0.5 mg PO HSPRN PRN
10/28/24 22:55
TSH Reflex To Free T4 Routine
Activity As Directed
Activity Level: Ambulate
Bladder Scan As Directed
Follow Bladder Retention/Intermittent Cath Algorithm?: Yes
PRN if no void in __ hours: 6
Frequency: Per Retention Algorithm
If Bladder Scan Result >: 400
then:: Straight cath
I/O [Intake/ Output] As Directed
Frequency: Per unit guidelines
Precautions As Directed
Type of Precautions: Droplet
Straight Cath As Directed
Frequency: Per Retention Algorithm
Additional Instructions: straight cath as needed per acute urinary retention algorithm for 24 hrs
Additional Instructions: for bladder scan greater than 400 mL
Vital Signs As Directed
Frequency: Per unit guidelines
Weight As Directed
Frequency: Daily
Oxygen Therapy [O2 Therapy] [RESP] Routine
Titrate/Wean O2 to maintain O2 sat greater than (%): 94
DX Deep Vein Thrombosis Video Routine
10/29/24 06:00
Basic Metabolic Panel IN AM
Complete Blood Count/No Diff IN AM
Magnesium IN AM
10/29/24 08:00
Finasteride [Proscar] 5 mg PO DAILY
Oseltamivir Phosphate [Tamiflu] 75 mg PO BID
Tamsulosin [Flomax] 0.8 mg PO DAILY
10/29/24 18:00
Enoxaparin Sodium [Lovenox] 40 mg SC QPM
10/31/24 11:00
DC Protocol for Telemetry ONCE
Abnormal Lab Results
10/28/24
16:05
RBC 4.59 L 10^6/uL
(4.70-6.10)
MCH 31.6 H pg
(27.0-31.0)
Abs Immat Gran (auto) 0.1 H 10^3/uL
(0-0.05)
Absolute Neuts (auto) 7.2 H 10^3/uL
(1.4-6.5)
Absolute Lymphs (auto) 0.7 L 10^3/uL
(1.2-3.4)
Immature Gran % 0.6 H %
(0-0.5)
Neutrophils % 84.2 H %
(42.2-75.2)
Lymphocytes % 8.5 L %
(20.5-51.1)
BUN 21 H mg/dl
(9-20)
Glucose 102 H mg/dl
(70-99)
10/28/24 16:05
10/28/24 16:05
Vital Signs
Initial and Last Documented VS:
Initial Vital Signs
Temp Pulse Resp BP Pulse Ox
98 F 40 18 188/69 96
10/28/24 15:42 10/28/24 15:42 10/28/24 15:42 10/28/24 15:42 10/28/24 15:42
Last Documented Vital Signs
Temp Pulse Resp BP Pulse Ox
98.6 F 64 20 151/98 96
10/28/24 23:22 10/28/24 23:22 10/28/24 23:22 10/28/24 23:22 10/28/24 23:22
MDM/Problems Addressed
Differential Diagnosis Includes:
Pneumonia, influenza
MDM/Problems Addressed:
79-year-old male with influenza, bronchitis. Significant shortness of breath with any activity. Tamiflu and DuoNeb ordered. Admit to hospitalist.
Chronic conditions affecting care: HTN
Acute Exacerbation and/or Progression of Chronic Illness: HTN
*Radiology
Radiology exam reviewed: radiology read reviewed (Chest x-ray shows bilateral streaky opacities likely viral)
*Pulse Oximetry
Patient hypoxic: no
*EKG
Interpreted by ED Provider?: Yes
EKG Intrepretation Date: 10/28/24
EKG Intrepretation Time: 15:56
Interpretation: abnormal
Comparison EKG: changes noted
Heart Rate: 86
Rate: normal
Rhythm: sinus, PAC's and PVC's
[place]: normal axis
Interval: first degree heart block
QRS Pattern: right bundle branch block
Ischemia: no ischemia
*Sustainability Officer Interpretation
Rate: normal
Interpretation: abnormal
Heart Rate: 82
Rhythm: sinus, PAC's and PVC's
*Critical Care Note
Total Time (30-74mins, 75-104mins- exclusive of procedures): Not Applicable
Patient Management
Social determinants of health affecting care: Living situation and Strong social support
Discussion with other providers: Hospitalist
Escalation/DeEscalation of care consider admission/obs:
admission indicated
ED Attending Note
-
Portions of this chart may have been created with voice recognition software.� Occasional wrong word or��sound alike� substitutions may have occurred due to the inherent limitations of voice recognition software.
Discharge Plan
Departure
Patient Disposition: Admit
Date of Disposition: 10/28/24
Time of Disposition: 20:28
Admit to: Telemetry
Presentation/result/management discussed w/ accepting MD/DO: Hospitalist
Patient with high blood pressure during this ER visit?: Yes
Condition: Fair
Discharge Problem:
Influenza A, Acute bronchitis
Interventions
Interventions:
*Risk Screen - Suicide Last Done: 10/28/24 23:02
*General Assessment Last Done: 10/28/24 15:42
*Neglect/Abuse Screening Last Done: 10/28/24 15:42
ED- Fall Risk Assessment Last Done: 10/28/24 22:57
*ED COVID-19 Vaccine History Last Done: 10/28/24 23:02
*Nursing Disposition Last Done: 10/28/24 22:57
ED- Cardiac Assessment Last Done: 10/28/24 19:54
ED- Pulmonary Assessment Last Done: 10/28/24 19:54
Discharge Date and Time
Discharge Date/Time: 10/28/24 22:57
[2024-10-28] MEDS: TAMIFLU 75 MG PO (20:39)
[2024-10-28] MEDS: DUONEB 3 ML INH (20:39)
[2024-10-28 20:58] LABS: COVID-19 Antigen Negative (Negative)
[2024-10-28 21:00] VITALS: BP 173/54
[2024-10-28 22:00] VITALS: BP 145/90
--- NOTE | 2024-10-28 22:08 | HPS.HSE ---
Family Physician
-
Family Physician: Jose Rafael Mohan
Chief Complaint
-
Cough, SOB
History of Present Illness
Patient is an 79y M with PMH significant for BPH and GERD who presents to ED complaining of cough and SOB x 3 days. Patient states that he started to feel ill on Thursday AM. He notes that he was around his grandchildren on Thursday who were
having 'cold symptoms' at that time. Patient developed cough, malaise and fatigue. His symptoms have waxed and waned since Thursday evening. He denies any fevers / chills. No GI or complaints beyond anorexia / poor appetite.
Today he presented to Urgent Care for evaluation and was advised to present to the ED for evaluation.
He did not have his annual flu vaccine.
Medical History
Past Medical History
Past Medical History: Reports Other
Additional Past Medical History:
BPH with LUTS
GERD
SVT
Past Surgical History: Reports Other
Additional Past Surgical History:
TURP (10/2024)
SVT Ablation (04/2024)
Right TKA
Hernia Repair
Right Shoulder Surgery
Right Ankle ORIF
TUMT
Social History
Tobacco: Former Smoker (Quit > 10 years ago.)
Alcohol: Occasional
Drug: None
Personal:
Living: With Family
Family History
Family History: Not pertinent
Allergies / Home Medications
Allergies reflects when Allergies were last updated in [email or web address].
Home Medications with original date entered in [email or web address]
Allergy/Medication List:
Allergies
Allergy/AdvReac Type Severity Reaction Status Date / Time
zolpidem [From Ambien] Allergy Dizziness Verified 10/14/24 23:15
and
confusion
Home Medications
finasteride 5 mg tablet 5 mg PO DAILY 04/27/24
omeprazole 20 mg capsule,delayed release 20 mg PO DAILYPRN PRN stomach issues 04/27/24
tamsulosin 0.4 mg capsule 0.8 mg PO DAILY 04/27/24
cholecalciferol (vitamin D3) 25 mcg (1,000 unit) tablet (Vitamin D3) 25 mcg PO DAILY ##0 10/11/24
magnesium oxide 250 mg PO DAILY ##0 10/11/24
ibuprofen 200 mg tablet (Advil) 400 mg PO Q6HPRN PRN mild pain 10/14/24
Medical Cannabis 1 gummy PO QPMPRN PRN sleep 10/28/24
acetaminophen 500 mg tablet (Tylenol Extra Strength) 1,000 mg PO Q6HPRN PRN mild pain/fever 10/28/24
alprazolam 1 mg tablet (Xanax) 0.5 mg PO HSPRN PRN sleep 10/28/24
Review of Systems
-
History Source: Patient
A 12 point ROS was completed and negative except as noted: Yes
Constitutional: Reports Fatigue; Denies Fever or Chills
EENT: Denies Sore Throat
Respiratory: Reports Cough and Trouble Breathing; Denies Hemoptysis
Cardiac: Denies Chest Pain or Palpitations
Abdomen/GI: Denies Abdominal Pain, Nausea, Vomiting or Diarrhea
: Denies Dysuria or Frequency
Musculoskeletal: Denies Joint Pain or Edema
Neurological: Denies Dizzy or Headache
Psych: Denies Depression or Anxiety
Physical Exam
Vital Signs
Vital Signs
Temp Pulse Resp BP Pulse Ox
98.6 F 100 22 173/54 93
10/28/24 19:53 10/28/24 21:45 10/28/24 21:45 10/28/24 21:00 10/28/24 21:45
Physical Exam
General: Other (79y M in no acute distress.)
HEENT: Moist mucous membranes and PERRLA
Respiratory: Other (Scattered coarse breath sounds. No wheezing.)
Cardiac: S1/S2 and Irregular Rhythm; No Murmur
GI: Soft, Non Tender, Non Distended and Normal Bowel Sounds
Musculoskeletal: No Clubbing, No Cyanosis and No Edema
Neuro: AO x 3
Laboratory Results
-
10/28/24 16:05
10/28/24 16:05
Laboratory Results
Total Bilirubin 0.5 mg/dl (0.2-1.3) 10/28/24 16:05
AST 37 U/L (17-59) 10/28/24 16:05
ALT 37 U/L (0-50) 10/28/24 16:05
Alkaline Phosphatase 66 U/L (38-126) 10/28/24 16:05
Impression/Plan
-
A/P: Patient is an 79y M with PMH significant for GERD and BPH who presents to ED complaining of cough and fatigue x 3-4 days.
Influenza A
Mild Hypoxemia secondary to the above
- Observe overnight for further evaluation and treatment.
- Tamiflu x 5 days.
- Supportive care, albuterol MDI, etc.
- Follow proper precautions.
- Follow for clinical improvement.
SVT
- Patient is frequent ectopy on tele / EKG - ventricular and supraventricular.
- Check TFTs, magnesium, etc.
- Monitor on tele overnight.
- s/p SVT ablation in April ([facility])
BPH
- Stable. s/p TURP 2 weeks ago.
- Continue current med regimen.
- Bladder scan protocol.
DVT Prophylaxis: Lovenox
Code Status: Full
[2024-10-28 23:21] VITALS: BMI 27.7
[2024-10-28 23:22] VITALS: BP 151/98
--- NOTE | 2024-10-28 23:30 | PTCARENOTE ---
Received pt from ED into room 2131. Flu A positive. Pt ambulatory with cane and stand by assistance. AAOx3. VSS. See Assessment. Occasional, harsh cough. Pt with no complaints at this time, call caldera within reach.
[2024-10-29] MEDS: ROBITUSSIN DM 5 ML PO ×2 (00:08→06:19)
[2024-10-29] MEDS: XANAX 0.5 MG PO ×2 (00:23→20:10)
[2024-10-29 03:00] VITALS: BP 159/90
[2024-10-29 06:00] VITALS: BMI 27.7
[2024-10-29] MEDS: TYLENOL 1000 MG PO ×3 (06:19→20:10)
[2024-10-29 07:21] LABS: Hematocrit 43.2 % (39.0-52.0); Hemoglobin 14.4 g/dL (13.0-18.0); Mean Corp Hgb Conc. 33.3 g/dL (33.0-37.0); Mean Corpuscular Volume 92.9 fL (80.0-94.0); Mean Platelet Volume 9.6 fL (7.4-10.4); Platelet Count 259 10^3/uL (130-400); Red Blood Cell Count 4.65 10^6/uL (4.70-6.10); Red Cell Dist. Width 12.9 % (11.5-14.5); White Blood Cell Count 7.4 10^3/uL (4.8-10.8)
[2024-10-29 07:35] VITALS: BP 183/88
[2024-10-29 07:46] LABS: Blood Urea Nitrogen 22 mg/dl (9-20); Calcium 8.7 mg/dl (8.4-10.2); Carbon Dioxide 25 mmol/L (22-30); Chloride 98 mmol/L (98-107); Estimated Creatinine Clearance 85 ml/min; Glucose 104 mg/dl (70-99); Magnesium 2.2 mg/dl (1.6-2.3); Potassium 4.1 mmol/L (3.5-5.1); Sodium 137 mmol/L (135-145); eGFR > 60.00
[2024-10-29 08:13] LABS: TSH Reflex To Free T4 3.46 uIU/ml (0.47-4.68)
[2024-10-29] MEDS: FLOMAX 0.8 MG PO (08:58)
[2024-10-29] MEDS: TAMIFLU 75 MG PO ×2 (08:58→20:11)
[2024-10-29] MEDS: PROSCAR 5 MG PO (08:58)
--- NOTE | 2024-10-29 09:44 | SUR.OPER ---
Pt very weak and running to BR with loose stool. Appetite diminished. Pt also SOB with ambulation and any increase in activity. Lungs are coarse, RA 94%. Pt not sleeping and requesting something stronger to help him sleep. His cough is keeping
him up. Pt's also coming down with the flu as well.
--- NOTE | 2024-10-29 10:46 | PTCARENOTE ---
Pt had xanex last night but states that it didn't help. Pt is very anxious. Will cont to monitor.
[2024-10-29 11:45] VITALS: BP 160/86
[2024-10-29] MEDS: ProAIR HFA INHALER 2 PUFF INH ×2 (12:29→19:42)
--- NOTE | 2024-10-29 13:30 | W.PN.HOSP.TC ---
Today's Communication/Plan
-
cont current management
add phenergan with codeine cough med
Assessment / Plan
Assessment / Plan
pt is an 79 year old male
Influenza A positive with acute mild hypoxemia--pt now on room air--cont tamiflu--add phenergan with codeine for cough
SVT - Patient is frequent ectopy on tele / EKG - ventricular and supraventricular--K+ and mag WNL--TSH WNL - s/p SVT ablation in April ([facility])
BPH - Stable. s/p TURP 2 weeks ago - Continue current med regimen - Bladder scan protocol.
DVT Prophylaxis: Lovenox
Code Status: Full
Anticipated Discharge: 24 - 48 hours
Subjective/Interval History
-
Date of Service: October 29, 2024
pt c/o can't sleep, coughing
Objective Data
-
Labs:
Laboratory Results
10/29/24
06:19
WBC 7.4
Hgb 14.4
Hct 43.2
Plt Count 259
Sodium 137
Potassium 4.1
Chloride 98
Carbon Dioxide 25
BUN 22 H
Creatinine 0.7
Glucose 104 H
Calcium 8.7
Vital Signs:
max temp for 24 hours
10/29/24
03:00
Temp 98.8 F
Vital Signs
Temp Pulse Resp BP Pulse Ox
99.9 F 91 16 160/86 95
10/29/24 11:45 10/29/24 12:38 10/29/24 12:38 10/29/24 11:45 10/29/24 12:38
I&O
10/28/24 10/29/24 10/30/24
06:59 06:59 06:59
Intake Total 960 / 960
Output Total 500 / 500
Balance 460 / 460
Review of Systems
-
All other systems: Reviewed and negative
Respiratory: Reports Cough and Trouble Breathing
Physical Exam
-
General: Well Developed, Well Nourished and No Apparent Distress
HEENT: Normocephalic and Atraumatic
Respiratory: Rhonchi
Cardiac: Regular Rhythm and S1/S2; Negative Murmur
GI: Soft, Nontender, Nondistended and Normal Bowel Sounds
Musculoskeletal: No Clubbing, No Cyanosis and No Edema
Neuro: Awake and Alert
Psych: Calm
--- NOTE | 2024-10-29 13:56 | CM ---
Reviewed the chart notes and spoke with the patient at the bedside. The patient is admitted under observational status for influenza. The [facility] letter was provided and explained. The patient had no questions with regards to the letter.
The patient resides with his spouse in a two story raised home with a flight of steps to enter. The patient reports only DME in home is a cane which he does not use. The patient reports no VN or SNF. The patient confirmed his pharmacy of choice
is [facility]. The patient anticipates being discharged to home with no needs being identified at this time. CM continues to be available to patient/family and is monitoring medical plan for needs at discharge.
Plan: Discharge to home when medically stable.
[2024-10-29 15:20] VITALS: BP 166/74
[2024-10-29] MEDS: PHENERGAN WITH CODEINE SYRUP 5 ML PO ×2 (15:31→20:11)
[2024-10-29] MEDS: LOVENOX 40 MG SC (18:06)
[2024-10-29 19:18] VITALS: BP 160/74
[2024-10-29 23:21] VITALS: BP 118/55
[2024-10-30] VITALS (7 sets, daily range): BP systolic 125–165; BP diastolic 57–78; PULSE 88; O2SAT 94; BMI 26.4
[2024-10-30] MEDS: TYLENOL 1000 MG PO ×3 (04:10→21:09)
[2024-10-30] MEDS: PHENERGAN WITH CODEINE SYRUP 5 ML PO ×4 (04:10→21:09)
[2024-10-30] MEDS: ProAIR HFA INHALER 2 PUFF INH ×2 (04:22→11:21)
[2024-10-30 07:43] LABS: Hematocrit 41.3 % (39.0-52.0); Hemoglobin 14.3 g/dL (13.0-18.0); Mean Corp Hgb Conc. 34.6 g/dL (33.0-37.0); Mean Corpuscular Hgb 32.3 pg (27.0-31.0); Mean Corpuscular Volume 93.2 fL (80.0-94.0); Mean Platelet Volume 9.9 fL (7.4-10.4); Platelet Count 265 10^3/uL (130-400); Red Blood Cell Count 4.43 10^6/uL (4.70-6.10); Red Cell Dist. Width 12.9 % (11.5-14.5); White Blood Cell Count 7.3 10^3/uL (4.8-10.8)
[2024-10-30] MEDS: TAMIFLU 75 MG PO ×2 (08:12→21:09)
[2024-10-30] MEDS: PROSCAR 5 MG PO (08:13)
[2024-10-30] MEDS: FLOMAX 0.8 MG PO (08:13)
[2024-10-30 08:14] LABS: Blood Urea Nitrogen 18 mg/dl (9-20); Calcium 8.6 mg/dl (8.4-10.2); Carbon Dioxide 31 mmol/L (22-30); Chloride 98 mmol/L (98-107); Estimated Creatinine Clearance 85 ml/min; Glucose 111 mg/dl (70-99); Magnesium 2.3 mg/dl (1.6-2.3); Potassium 3.9 mmol/L (3.5-5.1); Sodium 137 mmol/L (135-145); eGFR > 60.00
--- NOTE | 2024-10-30 09:45 | W.PN.HOSP.TC ---
Today's Communication/Plan
-
anticipate home tomorrow
Assessment / Plan
Assessment / Plan
pt is an 79 year old male
Influenza A positive with acute mild hypoxemia--pt now on room air--cont tamiflu--add phenergan with codeine for cough
SVT - Patient is frequent ectopy on tele / EKG - ventricular and supraventricular--K+ and mag WNL--TSH WNL - s/p SVT ablation in April ([facility])
BPH - Stable. s/p TURP 2 weeks ago - Continue current med regimen - Bladder scan protocol.
DVT Prophylaxis: Lovenox
Code Status: Full
anticipate d/c home tomorrow
Anticipated Discharge: Within 24 hours
Subjective/Interval History
-
Date of Service: October 30, 2024
pt slept better--told his he is not going home (even before I discussed it with him)
Objective Data
-
Labs:
Laboratory Results
10/30/24
07:25
WBC 7.3
Hgb 14.3
Hct 41.3
Plt Count 265
Sodium 137
Potassium 3.9
Chloride 98
Carbon Dioxide 31 H
BUN 18
Creatinine 0.7
Glucose 111 H
Calcium 8.6
Vital Signs:
max temp for 24 hours
10/29/24
11:45
Temp 99.9 F
Vital Signs
Temp Pulse Resp BP Pulse Ox
98.1 F 66 20 145/71 94
10/30/24 07:40 10/30/24 07:40 10/30/24 07:40 10/30/24 07:40 10/30/24 09:00
I&O
10/29/24 10/30/24 10/31/24
06:59 06:59 06:59
Intake Total 960 / 960 1200 / 1200
Output Total 500 / 500 1175 / 1175
Balance 460 / 460
Review of Systems
-
All other systems: Reviewed and negative
Constitutional: Reports No Appetite
Physical Exam
-
General: Well Developed, Well Nourished and No Apparent Distress
HEENT: Normocephalic and Atraumatic; Negative Oxygen
Respiratory: Clear to Auscultation; Negative Wheezes or Rhonchi
Cardiac: Regular Rhythm and S1/S2; Negative Murmur
GI: Soft, Nontender, Nondistended and Normal Bowel Sounds
Musculoskeletal: No Clubbing, No Cyanosis and No Edema
Neuro: Awake and Alert
Psych: Calm
[2024-10-30] MEDS: LOVENOX 40 MG SC (17:49)
[2024-10-30] MEDS: XANAX 0.5 MG PO (21:10)
--- NOTE | 2024-10-31 00:02 | PTCARENOTE ---
Patient's POX 86-90% on room air, RR 20. Patient w/ no complaints of shortness of breath. Mild upper airway wheezes. Patient placed on 2L NC and POX 93-95%.
[2024-10-31] MEDS: PHENERGAN WITH CODEINE SYRUP 5 ML PO ×3 (02:31→19:57)
[2024-10-31 03:27] VITALS: BP 158/75
[2024-10-31 06:00] VITALS: BMI 26.4
[2024-10-31 07:25] VITALS: BP 143/79
[2024-10-31] MEDS: TAMIFLU 75 MG PO ×2 (07:52→19:58)
[2024-10-31] MEDS: FLOMAX 0.8 MG PO (07:53)
[2024-10-31] MEDS: PROSCAR 5 MG PO (07:53)
[2024-10-31] MEDS: TYLENOL 1000 MG PO ×2 (11:11→19:57)
[2024-10-31 11:21] VITALS: BP 149/75
[2024-10-31 12:11] VITALS: BP 172/83; PULSE 58; O2SAT 95
[2024-10-31] MEDS: LOVENOX SC (14:35)
--- NOTE | 2024-10-31 15:25 | W.PN.HOSP.TC ---
Addendum entered and electronically signed by Kylie Boyle MD 10/31/24 15:40:
I saw and evaluated the patient independently. I reviewed the resident�s note and agree with findings and plan as documented by Dr. Hills.
GENERAL: well developed, well nourished, male in no apparent distress
HEENT: NC/AT
HEART: regular rate and rhythm, +S1, +S2
LUNGS : clear to auscultation bilaterally
ABDOM: soft, nontender, nondistended, + bowel sounds
EXT: no cyanosis, clubbing, or edema
NEUROLOGIC: grossly intact
Influenza A positive with acute mild hypoxemia--pt now on room air--finish tamiflu--add phenergan with codeine for cough
SVT - Patient is frequent ectopy on tele/EKG--ventricular and supraventricular--K+ and mag WNL--TSH WNL - s/p SVT ablation in April ([facility])
BPH - Stable. s/p TURP 2 weeks ago - Continue current med regimen - Bladder scan protocol.
DVT Prophylaxis: Lovenox
Code Status: Full
anticipate d/c home tomorrow--explained cannot keep any longer as not febrile, WBC WNL, no longer hypoxic, walking around the room
Original Note:
Today's Communication/Plan
-
Discharge
Assessment / Plan
Assessment / Plan
Impression
Patient is an 79 year old male admitted with influenza A associated with hypoxemia, required oxygen initially but is currently breathing in room air. Patient has had SVT, potassium and magnesium within normal limits, TFTs within normal limits.
Patient had cardiac ablation in April 2024 and TURP in October 2024 and recovered well.
Assessment/plan
Influenza A positive with acute mild hypoxemia
Today is patient's fourth day of admission
Breathing on room air
Continue Tamiflu
Advised patient that he remains contagious as long as he is coughing and should practice droplet precautions at home
SVT -
Patient had frequent ectopies on telemetry- ventricular and supraventricular-
-K+ and mag WNL--TSH WNL - s/p SVT ablation in April ([facility])
BPH - Stable. s/p TURP 2 weeks ago - Continue current med regimen - Bladder scan protocol.
DVT Prophylaxis: Lovenox
Code Status: Full
Anticipated Discharge: Within 24 hours
Subjective/Interval History
-
Date of Service: October 31, 2024
Patient feels well with no active issue, still has productive cough
Objective Data
-
Vital Signs:
Vital Signs
Temp Pulse Resp BP Pulse Ox
98.3 F 61 16 149/75 96
10/31/24 11:21 10/31/24 11:21 10/31/24 11:21 10/31/24 11:21 10/31/24 11:21
I&O
10/30/24 10/31/24 11/01/24
06:59 06:59 06:59
Intake Total 1200 / 1200 1440 / 1440
Output Total 1175 / 1175
Balance 1440 / 1440
Review of Systems
-
All other systems: Reviewed and negative
Physical Exam
-
General: Well Developed, Well Nourished, No Apparent Distress and Other (Bilateral xanthelasma)
HEENT: Normocephalic and Atraumatic
Respiratory: Wheezes (Mild wheezes) and Other (Normal vesicular breathing)
Cardiac: Regular Rhythm and S1/S2
GI: Soft, Nontender, Nondistended and Normal Bowel Sounds
Musculoskeletal: No Clubbing, No Cyanosis and No Edema
Skin: Warm
Neuro: Awake, Alert, Oriented and No Motor Deficits
[2024-10-31 15:30] VITALS: BP 159/62
--- NOTE | 2024-10-31 15:36 | CM ---
Patient seen at bedside with physicians. Patient given IMM to review. Patient plan is for discharge home tomorrow with no needs. CM will continue to follow for discharge planning needs.
Plan; home with no needs
[2024-10-31] MEDS: ProAIR HFA INHALER 2 PUFF INH (15:59)
[2024-10-31] MEDS: XANAX 0.5 MG PO (19:59)
[2024-10-31 23:15] VITALS: BP 121/55
[2024-11-01] MEDS: PHENERGAN WITH CODEINE SYRUP 5 ML PO ×2 (02:07→12:38)
[2024-11-01 06:00] VITALS: BMI 26.3
--- NOTE | 2024-11-01 06:54 | W.PN.HOSP.TC ---
Addendum entered and electronically signed by Kylie Boyle MD 11/01/24 16:23:
I saw and evaluated the patient independently. I reviewed the resident�s note and agree with findings and plan as documented by Dr. Hills.
GENERAL: well developed, well nourished, male in no apparent distress
HEENT: NC/AT
HEART: regular rate and rhythm, +S1, +S2
LUNGS : clear to auscultation bilaterally
ABDOM: soft, nontender, nondistended, + bowel sounds
EXT: no cyanosis, clubbing, or edema
NEUROLOGIC: grossly intact
Influenza A positive with acute mild hypoxemia--pt now on room air--finish tamiflu--add phenergan with codeine for cough--feels well enough to go home
SVT - Patient is frequent ectopy on tele/EKG--ventricular and supraventricular--K+ and mag WNL--TSH WNL - s/p SVT ablation in April ([facility])
BPH - Stable. s/p TURP 2 weeks ago - Continue current med regimen - Bladder scan protocol.
DVT Prophylaxis: Lovenox
Code Status: Full
d/c home
Original Note:
Today's Communication/Plan
-
Discharge
Assessment / Plan
Assessment / Plan
Impression
Patient is an 79 year old male admitted with influenza A associated with hypoxemia, required oxygen initially but is currently breathing on room air. Patient has had SVT, potassium and magnesium within normal limits, TFTs within normal limits.
Patient had cardiac ablation in April 2024 and TURP in October 2024 and recovered well.
Assessment/plan
Influenza A positive with acute mild hypoxemia
Today is patient's fifth day of admission
Breathing on room air
Finished Tamiflu course
Advised patient that he remains contagious as long as he is coughing and should practice droplet precautions at home
SVT -
Patient had frequent ectopies on telemetry- ventricular and supraventricular-
-K+ and mag WNL--TSH WNL - s/p SVT ablation in April ([facility])
BPH - Stable. s/p TURP 2 weeks ago - Continue current med regimen - Bladder scan protocol.
DVT Prophylaxis: Lovenox
Code Status: Full
Anticipated Discharge: Today
Subjective/Interval History
-
Date of Service: November 01, 2024
Patient is feeling much better, still complains of some cough but has more energy
Objective Data
-
Vital Signs:
Vital Signs
Temp Pulse Resp BP Pulse Ox
98.0 F 63 18 121/55 92
10/31/24 23:15 10/31/24 23:15 10/31/24 23:15 10/31/24 23:15 10/31/24 23:15
I&O
10/30/24 10/31/24 11/01/24
06:59 06:59 06:59
Intake Total 1200 / 1200 1440 / 1440 1540 / 1540
Output Total 1175 / 1175 850 / 850
Balance 1440 / 1440 690 / 690
Review of Systems
-
All other systems: Reviewed and negative
Physical Exam
-
General: Well Developed and Well Nourished
HEENT: Normocephalic, Atraumatic and Moist Mucous Membranes
Respiratory: Clear to Auscultation and Other (Harsh radicular breathing)
Cardiac: Regular Rhythm and S1/S2
GI: Soft, Nontender and Normal Bowel Sounds
Musculoskeletal: No Clubbing, No Cyanosis and No Edema
Neuro: Awake, Oriented and No Motor Deficits
Psych: Calm
--- NOTE | 2024-11-01 06:57 | W.DCSUMMARY ---
Addendum entered and electronically signed by Kylie Boyle MD 11/01/24 16:25:
Read, reviewed, and agree. See same day progress note for additional details. Time spent coordinating care, DC planning, review of DC plan of care with resident, transition of care, review of records in EMR, med rec, consults, notes, d/w
consultants, nursing, family, and CM = 33 minutes
Original Note:
Discharge Summary
Discharge Data
Date of Admission: 10/31/24
Date of Discharge: 11/01/24
-
Pending Results: No
Hospital Course
Discharging Physician :
Joel Dill
Disposition :
Home
Primary care physician :
Jose Rafael Mohan I.
Principal Discharge diagnosis :
Influenza A positivity with acute mild hypoxemia, supraventricular tachycardia, benign prostatic hyperplasia
Chronic Discharge diagnosis :
TURP (10/2024)
SVT Ablation (04/2024)
Right TKA
Hernia Repair
Right Shoulder Surgery
Right Ankle ORIF
TUMT
Hospital Course :
Patient is an 79y M with PMH significant for BPH and GERD who presents to ED complaining of cough and SOB x 3 days. Patient has had his grandchildren around on Thursday who were having cold symptoms and he started to feel the cold symptoms at that
time. He gradually developed cough malaise and fatigue and was not able to get out of bed on Thursday, October 26, 2024. He was feeling very tired and was having difficulty breathing so he came to the ER where he was found to have influenza A.He
initially required oxygen but he has been breathing on room air for last 24 hours without any issues. He completed the course of Tamiflu 75 mg twice daily for 5 days and was started on codeine syrup for his cough. He currently feels good although
not 100% to his energy level but the patient feels well enough to rest at home and recover.
Patient has history of SVT and he has had some ectopy on telemetry/EKG, his workup showed normal potassium and magnesium levels, TSH within normal limits, s/p SVT ablation in April, could be due to the disease process of pneumonia.
Patient advised to practice mask precautions since he remains contagious as long as he is coughing.
Important imaging findings :
Chest x-ray October 28, 2024
FINDINGS:
Lungs: Bibasilar streaky opacities. No consolidation. No pleural effusion or pneumothorax.
Heart: Cardiac and mediastinal contours are unremarkable. Tortuous thoracic aorta. Atherosclerotic calcifications of the aortic arch.
Osseous structures: No acute osseous abnormality. Partially visualized right shoulder arthroplasty. Degenerative changes of left glenohumeral joint. Mild degenerative changes of the thoracic spine.
IMPRESSION:
Bibasilar streaky opacities which are likely related to reported viral illness. There is no consolidation to suggest superimposed pneumonia.
Discharge Plan
-
Patient Disposition: Home (Routine Discharge)
Discharge Diagnosis/Procedures: Influenza A positivity with acute mild hypoxemia, supraventricular tachycardia, benign prostatic hyperplasia
Condition: Good
Diet: As tolerated and Regular
Activity: As tolerated
Driving Restrictions: As prior to admission
Bathing Restrictions: None
Referrals:
Jose Rafael Mohan I., DO [Family Provider] - in less than 1 week
Additional Discharge Medication Instructions: Do not take Xanax if you are taking the cough syrup with codeine
Prescriptions:
New
albuterol sulfate 90 mcg/actuation Hfa Aerosol Inhaler
2 puff inhalation R Q4HPRN PRN (Reason: SOB) 30 Days Qty: 1 0RF
promethazine-codeine 6.25-10 mg/5 mL syrup
5 ml PO Q6H PRN (Reason: cough) Qty: 118 0RF
Continued
tamsulosin 0.4 mg Capsule
0.8 mg PO DAILY
omeprazole 20 mg Capsule,Delayed Release(Dr/Ec)
20 mg PO DAILYPRN PRN (Reason: stomach issues)
finasteride 5 mg Tablet
5 mg PO DAILY
magnesium oxide 250 mg magnesium Tablet
250 mg PO DAILY Qty: 0
cholecalciferol (vitamin D3) [Vitamin D3] 25 mcg (1,000 unit) Tablet
25 mcg PO DAILY Qty: 0
ibuprofen [Advil] 200 mg Tablet
400 mg PO Q6HPRN PRN (Reason: mild pain)
alprazolam [Xanax] 1 mg Tablet
0.5 mg PO HSPRN PRN (Reason: sleep)
acetaminophen [Tylenol Extra Strength] 500 mg Tablet
1,000 mg PO Q6HPRN PRN (Reason: mild pain/fever)
Medical Cannabis
1 gummy PO QPMPRN PRN (Reason: sleep)
Discharge Orders:
Discharge Patient (As Directed); Ordered 11/01/24
Ordered By: Joel Hills
Discharge Date and Time
Print Language: CITIZEN OF [place]
[2024-11-01 08:03] VITALS: BP 143/66
[2024-11-01] MEDS: PROSCAR 5 MG PO (08:23)
[2024-11-01] MEDS: TAMIFLU 75 MG PO (08:23)
[2024-11-01] MEDS: FLOMAX 0.8 MG PO (08:23)
[2024-11-01] MEDS: ProAIR HFA INHALER 2 PUFF INH (13:03)
[2024-11-01 13:39] VITALS: BP 186/77
--- NOTE | 2024-11-01 14:25 | CM ---
Patient seen earlier today with physicians. IMM completed and form placed on chart. Patient family to transport. Patient declined VN. CM will continue to follow for discharge planning needs.
Plan; home with no needs
== END 2024-11-01 14:28 | disposition home or self-care (01) | DRG 194 ==
LOC: 2 NORTH 08:11
PROVIDERS: Emergency Medicine; ADMITTING PHYSICIAN Hospitalist; ATTENDING PHYSICIAN Internal Medicine; EMERGENCY PHYSICIAN Emergency Medicine; FAMILY PHYSICIAN Internal Medicine
DX: J10.1 Influenza due to other identified influenza virus with other respiratory manifestations (principal); I47.10 Supraventricular tachycardia, unspecified; R09.02 Hypoxemia; N40.1 Benign prostatic hyperplasia with lower urinary tract symptoms; K21.9 Gastro-esophageal reflux disease without esophagitis; Z87.891 Personal history of nicotine dependence
CPT/HCPCS: 71046; 80048; 80053; 83735; 84443; 85025; 85027; 87502; 87811; 93005; 94640; 97162; 97165; 99285

== ENCOUNTER 2025-04-26 19:35 | Emergency (ER) | payer MEDICARE, SELFPAY ==
[2025-04-26 19:40] VITALS: BP 144/89
[2025-04-26 19:42] VITALS: BP 144/89
[2025-04-26 20:00] VITALS: BP 151/77
[2025-04-26 20:03] VITALS: BMI 26.9
[2025-04-26] MEDS: NSS 500 IV (20:05)
[2025-04-26 20:12] LABS: % Basophils 0.7 % (0-2); % Eosinophils 1.1 % (0-6); % Immature Granulocytes 0.4 % (0-0.5); % Lymphocytes 14.8 % (20.5-51.1); % Monocytes 8.7 % (1.7-9.3); % Neutrophils 74.3 % (42.2-75.2); Absolute Basophils 0.1 10^3/uL (0-0.2); Absolute Eosinophils 0.1 10^3/uL (0-0.7); Absolute Lymphocytes 1.4 10^3/uL (1.2-3.4); Absolute Monocytes 0.9 10^3/uL (0.1-0.6); Absolute Neutrophils 7.2 10^3/uL (1.4-6.5); Hematocrit 45.1 % (39.0-52.0); Mean Corp Hgb Conc. 35.5 g/dL (33.0-37.0); Mean Corpuscular Hgb 31.7 pg (27.0-31.0); Mean Corpuscular Volume 89.5 fL (80.0-94.0); Mean Platelet Volume 9.8 fL (7.4-10.4); Nucleated Red Blood Cells % 0 % (-); Platelet Count 273 10^3/uL (130-400); Red Blood Cell Count 5.04 10^6/uL (4.70-6.10); White Blood Cell Count 9.7 10^3/uL (4.8-10.8)
[2025-04-26 20:41] LABS: Blood Urea Nitrogen 16 mg/dl (9-20); Carbon Dioxide 25 mmol/L (22-30); Chloride 106 mmol/L (98-107); Estimated Creatinine Clearance 98 ml/min; Glucose 110 mg/dl (70-99); Sodium 139 mmol/L (135-145); eGFR > 60.00
--- NOTE | 2025-04-26 21:01 | ED.GENMED ---
History of Present Illness
General
Chief Complaint: Heart Rate Problem
Source: patient
Time Seen by Provider: 04/26/25 19:42
History of Present Illness
History of Present Illness:
Note:
CHIEF COMPLAINT(S)
Supraventricular tachycardia (SVT) episodes
HISTORY OF PRESENT ILLNESS
The patient is an 80-year-old male with a history of supraventricular tachycardia who presents with recurrent episodes of tachycardia. The patient underwent an ablation approximately one year ago and reports that everything was fine for the first
six months post-procedure. He then experienced an episode of tachycardia described as a heart rate of 124 beats per minute (bpm) while driving on a warm day, which resolved with breathing and coughing exercises. Last week, he noted two more episodes
with heart rates reaching 130 and 124 bpm, coinciding with an anxiety attack.
Tonight, he experienced another episode of tachycardia after being upset about various personal and professional stressors. He felt lightheaded and noticed a heart rate of 135 bpm, escalating to 165 bpm. The patient self-administered a half dose of
metoprolol, and the symptoms began to resolve before EMS arrival. He expressed concern about upcoming travel and work commitments, which may contribute to his stress levels.
ADDITIONAL HISTORY OBTAINED FROM SOURCES OTHER THAN THE PATIENT
According to the patient�s spouse, the patient was upset due to having to adjust their schedules and commitments, which contributed to his anxiety and possibly triggered his recent episode.
PHYSICAL EXAM
- General: Well-appearing, no acute distress.
- Cardiovascular: Regular rhythm, no murmur, telemetry monitoring shows normal sinus rhythm.
- Respiratory: Clear to auscultation bilaterally, no respiratory distress.
- Neurological: Non-focal motor exam.
- Abdomen: Non-distended.
- Extremities: No lower extremity edema.
- Mucous Membranes: Moist.
PLAN
- Check electrolytes considering the hot weather and potential dehydration.
- Administer intravenous fluids to ensure proper hydration.
- Observe the patient on the monitor to track any rhythm changes.
- Evaluate cardiac rhythm before discharge.
DIFFERENTIAL DIAGNOSIS
The Differential Diagnosis includes, in no particular order and is not limited to:
1. Recurrent supraventricular tachycardia
2. Atrial fibrillation
3. Ventricular tachycardia
4. Anxiety-induced palpitations
5. Electrolyte imbalance
6. Hyperthyroidism
7. Alcohol or caffeine-induced palpitation
8. Dehydration
9. Pulmonary embolism
10. Sinus tachycardia due to stress or dehydration
EKG
My independent EKG interpretation is:
- Rhythm: Normal
- Heart Rate: (Not specified in the inventory transcriber)
- WA Interval: First-degree block
- [place]: Left-axis deviation
- QRS Duration: Incomplete right bundle branch block (Rupon-Obrice block likely implies 'right bundle branch block')
- QT Interval: (Not specified in the inventory transcriber)
- Abnormalities: Non-specific ST and T wave changes
- Comparison: No acute ischemic changes; EKG is grossly unchanged compared to the prior EKG from 10/28/24
Disposition:
SUMMARY OF ENCOUNTER
The patient presented to the emergency department after experiencing a tachycardia episode at home. He reported not being able to record an ECG with his watch. Upon EMS evaluation, no supraventricular arrhythmia was found, and the patient was in
normal sinus rhythm on arrival. There was uncertainty whether the patient experienced supraventricular tachycardia or another arrhythmia, as he admitted to being under significant stress. The patient self-administered an extra dose of his
beta-yanet, contributing to stabilization. He is considered stable for outpatient management and advised to follow up with a horse racing manager. While consideration for a troponin test was made, it was deemed unnecessary as the patient denied any chest
pain or other ischemic symptoms.
PLAN
Recommend follow-up with a horse racing manager.
INDEPENDENT REVIEW OF LABS AND INTERPRETATION OF TESTS
My independent review of todays labs reveals a normal hemoglobin at 16, a normal white count at 9.7, and a comprehensive metabolic panel that is grossly unremarkable. Potassium levels will be rechecked as they were penalized.
MEDICAL DECISION MAKING
1. Number & Complexity of Problems: Chronic conditions affecting care include a history of supraventricular tachycardia. Differential diagnoses considered include recurrent supraventricular tachycardia, anxiety-induced palpitations, and sinus
tachycardia due to stress.
2. Data Reviewed: Category 2 includes the review of old records, including a November 01, 2024, discharge summary.
3. Risk: The decision against ordering a troponin test was based on the absence of chest pain or ischemic symptoms, and the patients reported stability and symptom control with a beta-yanet. Outpatient management is deemed appropriate given these
factors.
PATHOLOGIES TO CONSIDER
Pulmonary embolism, Acute coronary syndrome, Atrial fibrillation, Ventricular tachycardia.
Past History
Past History
ED Past Medical History: Arrthythmia, GERD and HTN
ED Past Surgical History: Appendectomy, Orthopedic (Right shoulder replacement, left wrist, left ankle tendon repair) and Other (Bilateral inguinal hernia)
Social History
Tobacco: Former smoker
Alcohol: None
Drug: None
Personal:
Living: with family
Employment: Employed
Phy Exam
Physical Exam
Physical Exam:
.
Course
Orders/Labs/Results
Orders:
Orders
04/26/25 19:39
Electrocardiogram (*1) Urgent
Reason for Study: Chest Pain
Cardiac Monitoring- Treatment ONCE
EKG- Treatment ONCE
IV Insert/Care/Rem.- Treatment PRN
O2 Therapy [RESP] Urgent
Titrate/Wean O2 to maintain O2 sat greater than (%): 90
Special Instructions: Maintain sats >/=90%
Pulse Ox/spot Check [RESP] Urgent
Quantity: 1
Special Instructions: ON ROOM AIR
04/26/25 19:56
0.9% Sodium Chloride 500 ml [Nss] 500 ml IV BOLUS
04/26/25 20:04
Basic Metabolic Panel Urgent
Complete Blood Count/With Diff Urgent
04/26/25 21:11
Potassium Urgent
Abnormal Lab Results
04/26/25
20:04
MCH 31.7 H pg
(27.0-31.0)
Absolute Neuts (auto) 7.2 H 10^3/uL
(1.4-6.5)
Absolute Monos (auto) 0.9 H 10^3/uL
(0.1-0.6)
Lymphocytes % 14.8 L %
(20.5-51.1)
Creatinine 0.6 L mg/dL
(0.7-1.3)
Glucose 110 H mg/dl
(70-99)
04/26/25 20:04
04/26/25 21:11
Vital Signs
Initial and Last Documented VS:
Initial Vital Signs
Pulse Resp
83 18
04/26/25 19:38 04/26/25 19:38
Last Documented Vital Signs
Temp Pulse Resp BP Pulse Ox
98.2 F 71 14 151/77 97
04/26/25 19:40 04/26/25 20:15 04/26/25 20:15 04/26/25 20:00 04/26/25 21:02
*Pulse Oximetry
SaO2: 97
Oxygen Mode of Delivery: Room air
Patient hypoxic: no
*General Warehouse Associate Interpretation
Rate: normal
Interpretation: normal
Rhythm: sinus
*Critical Care Note
Total Time (30-74mins, 75-104mins- exclusive of procedures): Not Applicable
Data Reviewed
Source: patient
ED Attending Note
-
Portions of this chart may have been created with voice recognition software.� Occasional wrong word or��sound alike� substitutions may have occurred due to the inherent limitations of voice recognition software.
Discharge Plan
Departure
Patient Disposition: Home (Routine Discharge)
Date of Disposition: 04/26/25
Time of Disposition: 21:07
Patient with high blood pressure during this ER visit?: Yes
Discharge Problem:
Palpitations
Instructions: Palpitations (DC), BLOOD PRESSURE
Prescriptions:
No Action
tamsulosin 0.4 mg Capsule
0.8 mg PO DAILY
omeprazole 20 mg Capsule,Delayed Release(Dr/Ec)
20 mg PO DAILYPRN PRN (Reason: stomach issues)
finasteride 5 mg Tablet
5 mg PO DAILY
magnesium oxide 250 mg magnesium Tablet
250 mg PO DAILY Qty: 0
cholecalciferol (vitamin D3) [Vitamin D3] 25 mcg (1,000 unit) Tablet
25 mcg PO DAILY Qty: 0
ibuprofen [Advil] 200 mg Tablet
400 mg PO Q6HPRN PRN (Reason: mild pain)
alprazolam [Xanax] 1 mg Tablet
0.5 mg PO HSPRN PRN (Reason: sleep)
acetaminophen [Tylenol Extra Strength] 500 mg Tablet
1,000 mg PO Q6HPRN PRN (Reason: mild pain/fever)
Medical Cannabis
1 gummy PO QPMPRN PRN (Reason: sleep)
albuterol sulfate 90 mcg/actuation Hfa Aerosol Inhaler
2 puff inhalation R Q4HPRN PRN (Reason: SOB) 30 Days Qty: 1 0RF
promethazine-codeine 6.25-10 mg/5 mL syrup
5 ml PO Q6H PRN (Reason: cough) Qty: 118 0RF
Referrals:
Jose Rafael Mohan I., DO [Family Provider, Internal Medicine]
Activity Restrictions/Additional Instructions:
Please see your doctor or horse racing manager in the next 3 to 5 days for follow-up and reevaluation. Continue your current medications. Return immediately for chest pain, shortness of breath, palpitations, weakness of any kind, passing out episode or
any other concerns. In light of the heat, be sure to maintain proper hydration
Interventions
Interventions:
*Risk Screen - Suicide Last Done: 04/26/25 20:03
*General Assessment Last Done: 04/26/25 20:03
*Neglect/Abuse Screening Last Done: 04/26/25 20:03
*ED- Fall Risk Assessment Last Done: 04/26/25 20:03
*ED COVID-19 Vaccine History Last Done: 04/26/25 20:03
*Nursing Disposition Last Done: 04/26/25 21:49
ED- Cardiac Assessment Last Done: 04/26/25 20:03
ED- Pulmonary Assessment Last Done: 04/26/25 20:03
Discharge Date and Time
Discharge Date/Time: 04/26/25 22:08
Print Language: [place]
[2025-04-26 21:34] LABS: Potassium 3.8 mmol/L (3.5-5.1)
== END 2025-04-26 22:08 | disposition home or self-care (01) ==
LOC: EMR 19:35
PROVIDERS: Emergency Medicine; EMERGENCY PHYSICIAN Emergency Medicine; FAMILY PHYSICIAN Internal Medicine
DX: R00.2 Palpitations (principal); I10 Essential (primary) hypertension; I45.10 Unspecified right bundle-branch block; Z87.891 Personal history of nicotine dependence
CPT/HCPCS: 96360; 99284; 80048; 84132; 85025; 93005

== ENCOUNTER → 2025-05-31 09:02 | Outpatient (REF) | payer MEDICARE, SELFPAY | LOC: RCS 09:02 | PROVIDERS: ATTENDING PHYSICIAN Internal Medicine Cardiovascular Disease; FAMILY PHYSICIAN Internal Medicine | DX: I47.10 Supraventricular tachycardia, unspecified (principal); R06.02 Shortness of breath | CPT/HCPCS: 93306 ==

== ENCOUNTER → 2025-06-21 09:47 | Outpatient (REF) | payer MEDICARE, SELFPAY ==
[2025-06-21 19:12] LABS: Urine Character Slightly Cloudy (Clear)
[2025-06-21 20:53] LABS: Urine Red Blood Cell 0-2 /HPF (0-2)
== END ==
LOC: CLAB 09:47
PROVIDERS: ATTENDING PHYSICIAN Surgery
DX: N39.0 Urinary tract infection, site not specified (principal)
CPT/HCPCS: 81003; 81015; 87086